=== PATIENT | male | born 1990 | race Caucasian/White ===

== ENCOUNTER 2017-01-03 01:41 | Emergency (ER) | payer SELFPAY ==
[2017-01-03] MEDS ORDERED: ACETAMINOPHEN 325 MG TABLET PO ONE (01:54)
[2017-01-03] MEDS ORDERED: ONDANSETRON HCL INJ/PF 4 MG/2 ML SDV IV ONE (01:54)
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
[2017-01-03 04:52] VITALS: BP 114/67
== END 2017-01-03 06:50 | disposition home or self-care (01) ==
LOC: ER 01:41
DX: T40.601A Poisoning by unspecified narcotics, accidental (unintentional), initial encounter (principal); R11.0 Nausea; F17.200 Nicotine dependence, unspecified, uncomplicated
CPT/HCPCS: 99284; 96374; J2405